=== PATIENT | male | born 1990 | race Caucasian/White ===

== ENCOUNTER 2018-05-03 14:30 | Inpatient (IN) | payer OTHER ==
[2018-05-03 16:40] VITALS: BMI 24.4
--- NOTE | 2018-05-03 19:41 | HP ---
COWS - Scale Resting Pulse: 0= ME 80 or Below Sweatin=Flushed/Facial Moisture Restless Observation: 3= Extraneous Movement Pupil Size: 2= Moderately Dilated (Pupils = 4 mm) Bone or Joint Aches: 0= None Runny Nose/ Eye Tearin= Nasal Congestion GI Upset > 30mins: 0= None Tremor Observation: 1= Tremor [place], Not Seen Yawning Observation: 0= None Anxiety or Irritability: 1=Feels Anxious/Irritable Goose Flesh Skin: 0=Smooth Skin COWS Score: 10 Admission ROS [facility] - HPI Chief Complaint: Here for withdrawal from heroin. Allergies/Adverse Reactions: Allergies Allergy/AdvReac Type Severity Reaction Status Date / Time No Known Allergies Allergy Verified 05/03/18 17:46 History of Present Illness: Started using heroin at age 23. Uses heroin IV. Nicotine use at age 17. States does not shared needles or works. Denies hx overdose, seizures or blackouts. Denies significant PMH/PSH Exam Limitations: No Limitations - Ebola screening Have you traveled outside of the country in the last 21 days: No Have you had contact with anyone from an Ebola affected area: No Have you been sick,other than usual withdrawal symptoms: No Do you have a fever: No - Review of Systems Constitutional: Unintentional Wgt. Loss (Using drugs instead of eating) EENT: reports: Blurred Vision (Wears glaases), Nose Congestion (r/t withdrawal) Respiratory: reports: No Symptoms reported Cardiac: reports: No Symptoms Reported GI: reports: No Symptoms Reported : reports: No Symptoms Reported Musculoskeletal: reports: No Symptoms Reported Integumentary: reports: No Symptoms Reported Neuro: reports: Headache (mild r/t withdrawal) Endocrine: reports: No Symptoms Reported Hematology: reports: No Symptoms Reported Psychiatric: reports: Judgement Intact, Orientated x3, Agitated, Anxious ( Denies thoughts of harming self or others) Patient History - Patient Medical History Hx Asthma: No Hx Chronic Obstructive Pulmonary Disease (COPD): No Hx Cardiac Disorders: No Hx Congestive Heart Failure: No Hx Hypertension: No Hx Seizures: No Hx Diabetes: No Hx Gastrointestinal Disorders: No Hx Liver Disease: No Hx Genitourinary Disorders: No Hx Sexually Transmitted Disorders: No Hx Renal Disease (ESRD): No Hx Thyroid Disease: No Hx Human Immunodeficiency Virus (HIV): No (negative 1 year ago) Hx Hepatitis C: No Hx Depression: No Hx Suicide Attempt: No Hx Schizophrenia: No - Patient Surgical History Past Surgical History: Yes Hx Appendectomy: Yes Anesthesia Reaction: No - PPD History Previous Implant?: Yes Documented Results: Negative w/o proof Implanted On Prior [facility] Admission?: No PPD to be Administered?: Yes - Smoking Cessation Smoking history: Current every day smoker Have you smoked in the past 12 months: Yes Aproximately how many cigarettes per day: 6 Hx Chewing Tobacco Use: No Initiated information on smoking cessation: Yes 'Breaking Loose' booklet given: 05/03/18 - Substance & Tx. History Hx Alcohol Use: No Hx Substance Use: Yes Substance Use Type: Heroin Hx Substance Use Treatment: Yes (detox 2016) - Substances Abused Heroin Route: Injection Frequency: Daily Amount used: 2 bags Age of first use: 23 Date of Last Use: 05/03/18 (9:30 am) Admission Physical Exam BHS - Vital Signs Vital Signs: Vital Signs - 24 hr 05/03/18 16:37 Temperature 97.1 F L Pulse Rate 64 Respiratory 18 Rate Blood Pressure 126/74 - Physical General Appearance: Yes: Mild Distress, Tremorous (Mild tremor felt in hand), Anxious HEENTM: Yes: EOMI, Hearing grossly Normal, Normocephalic, Normal Voice, [place] ( Pupils = 4 mm), Other (Dry mucous membranes) Respiratory: Yes: Chest Non-Tender, Lungs Clear, Normal Breath Sounds, No Respiratory Distress Neck: Yes: No masses,lesions,Nodules, Supple Breast: Yes: Breast Exam Deferred Cardiology: Yes: Regular Rhythm, Regular Rate, S1, S2 Abdominal: Yes: Normal Bowel Sounds, Non Tender, Flat, Soft Genitourinary: Yes: Within Normal Limits Back: Yes: Normal Inspection Musculoskeletal: Yes: full range of Motion, Gait Steady Extremities: Yes: Normal Capillary Refill, Normal Range of Motion, Non-Tender, Tremors (Mild tremors felt in hands) Neurological: Yes: cage maker machine II-XII NML intact, Fully Oriented, Alert, Motor Strength 5/5, Normal Mood/Affect, Normal Response Integumentary: Yes: Normal Color, Dry (Decreased skin turgor), Track Benedict ( Both antecubitals. No increased redness, erythema, warmth) Lymphatic: Yes: Within Normal Limits - Diagnostic (1) Opioid dependence with withdrawal Current Visit: Yes Status: Acute (2) Dehydration Current Visit: Yes Status: Acute (3) Nicotine dependence Current Visit: Yes Status: Chronic Qualifiers: Nicotine product type: cigarettes Substance use status: in withdrawal Qualified Code(s): F17.213 - Nicotine dependence, cigarettes, with withdrawal Cleared for Admission [facility] - Detox or Rehab [facility] Level of Care: Medically Supervised Detox Regimen/Protocol: Methadone [facility] Breath Alcohol Content Breath Alcohol Content: 0 Urine Drug Screen - Results Drug Screen Negative: No Urine Drug Screen Results: OPI-Opiates, FEN-Fentanyl
[2018-05-03] MEDS ORDERED: METHADONE HCL 10 MG TABLET (FOR DETOX USE ONLY) PO ONE ×2 (19:59→23:00)
[2018-05-03] MEDS ORDERED: IBUPROFEN 400 MG TABLET (FP) PO PRN (19:59)
[2018-05-03] MEDS ORDERED: guaiFENesin/D-METHORPHAN HB 10 ML UNIT-DOSE CUPS PO PRN (19:59)
[2018-05-03] MEDS ORDERED: MENTHOL/PHENOL 1 EACH UD MM PRN (19:59)
[2018-05-03] MEDS ORDERED: MAGNESIUM CITRATE 300 ML BOTTLE PO PRN (19:59)
[2018-05-03] MEDS ORDERED: NICOTINE POLACRILEX 2 MG GUM BC PRN (19:59)
[2018-05-03] MEDS ORDERED: P-EPHED 60MG/TRIPROLIDI 2.5MG TABLET PO PRN (19:59)
[2018-05-03] MEDS ORDERED: ACETAMINOPHEN 325 MG TABLET (FP) PO PRN (19:59)
[2018-05-03] MEDS ORDERED: MAG HYDROX/AL HYDROX/SIMETH 30 ML UNIT-DOSE CUP PO PRN (19:59)
[2018-05-03] MEDS ORDERED: MAGNESIUM HYDROX 2400MG/30ML ORAL SUSPENSION 30 ML CUP PO PRN (19:59)
[2018-05-03] MEDS ORDERED: LOPERAMIDE HCL 2 MG CAPSULE PO PRN (19:59)
[2018-05-03] MEDS ORDERED: MELATONIN 5 MG TABLETS PO PRN (22:00)
[2018-05-03] MEDS: THIAMINE HCL 100 MG TABLET (FP) PO SCH (22:04)
[2018-05-03 23:22] LABS: URINE APPEARANCE TURBID; URINE BILIRUBIN NEGATIVE (<2.0 mg/dL); URINE COLOR AMBER; URINE GLUCOSE (UA) NEGATIVE (NEGATIVE); URINE KETONE NEGATIVE (NEGATIVE); URINE LEUK ESTERASE NEGATIVE (NEGATIVE); URINE NITRITE NEGATIVE (NEGATIVE); URINE PROTEIN NEGATIVE (NEGATIVE); URINE UROBILINOGEN NEGATIVE mg/dL (0.2-1.0)
[2018-05-04] MEDS ORDERED: METHADONE HCL 10 MG TABLET (FOR DETOX USE ONLY) PO ONE (10:00)
[2018-05-04] MEDS: NICOTINE 7 MG/24 HOURS TOPICAL PATCH TD SCH (10:26)
[2018-05-04] MEDS: PRENATAL VITAMINS W/ FOLIC ACID TABLET (FP) PO SCH (10:27)
[2018-05-04 10:35] LABS: HEMATOCRIT 40.8 % (35.4-49); HEMOGLOBIN 13.5 GM/dL (11.7-16.9); MCH 30.2 pg (25.7-33.7); MEAN CELL VOLUME 91.6 fl (80-96); MEAN PLT VOLUME 7.5 fl (7.5-11.1); PLATELET COUNT 291 K/MM3 (134-434); RBC 4.46 M/mm3 (4.00-5.60); RDW 14.5 % (11.9-15.9); WHITE BLOOD COUNT 5.2 K/mm3 (4.0-10.0)
[2018-05-04 10:55] LABS: ALBUMIN 3.5 g/dl (3.4-5.0); ALK PHOS 62 U/L (45-117); ANION GAP 8 MMOL/L (8-16); BILIRUBIN,TOTAL 0.3 mg/dL (0.2-1); BLOOD UREA NITROGEN 14 mg/dL (7-18); CALCIUM 9.4 mg/dL (8.5-10.1); CHLORIDE 104 mmol/L (98-107); CO2 28 mmol/L (21-32); CREATININE 0.9 mg/dL (0.55-1.3); GLUCOSE,RANDOM 81 mg/dL (74-106); POTASSIUM 4.6 mmol/L (3.5-5.1); SGOT/AST 8 U/L (15-37); SGPT/ALT 19 U/L (13-61); SODIUM 140 mmol/L (136-145); TOT PROT 6.6 g/dl (6.4-8.2)
--- NOTE | 2018-05-04 11:07 | EKG ---
Test Reason : Blood Pressure : / mmHG Vent. Rate : 060 BPM Atrial Rate : 060 BPM P-R Int : 132 ms QRS Dur : 086 ms QT Int : 414 ms P-R-T Axes : 023 070 040 degrees QTc Int : 414 ms NORMAL SINUS RHYTHM NORMAL ECG NO PREVIOUS ECGS AVAILABLE Confirmed by Thomas Pugh MD ([id number]) on 05/04/2018 11:06:28 AM Referred By: Confirmed By:Thomas Pugh MD
--- NOTE | 2018-05-04 11:15 | CONSULT ---
[facility] Psychiatric Consult - Data Date of interview: 05/04/18 Admission source: [facility] Identifying data: Patient is a 27 year old male, father of two, domiciled, and unemployed (works "off the books". This is patient's first admission to detox at [facility]. Patient admitted to for opiate dependence. Substance Abuse History: - Smoking Cessation. Smoking history: Current every day smoker. Have you smoked in the past 12 months: Yes. Aproximately how many cigarettes per day: 6. Hx Chewing Tobacco Use: No. Initiated information on smoking cessation: Yes. 'Breaking Loose' booklet given: 05/03/18. - Substance & Tx. History. Hx Alcohol Use: No. Hx Substance Use: Yes. Substance Use Type : Heroin. Hx Substance Use Treatment: Yes (detox 2017). - Substances Abused. Heroin. Route: Injection. Frequency: Daily. Amount used: 2 bags. Age of first use: 23. Date of Last Use: 05/03/18 (9:30 am) Medical History: denies. Psychiatric History: Patient denies h/o psychiatric hospitalization, outpatient care, and suicide attempt. Physical/Sexual Abuse/Trauma History: denies. Mental Status Exam - Mental Status Exam Alert and Oriented to: Time, Place, Person Cognitive Function: Good Patient Appearance: Well Groomed Mood: Euthymic Affect: Mood Congruent Patient Behavior: Appropriate, Cooperative Speech Pattern: Appropriate (Beninese speaking) Voice Loudness: Normal Thought Process: Intact, Goal Oriented Thought Disorder: Not Present Hallucinations: Denies Suicidal Ideation: Denies Homicidal Ideation: Denies Insight/Judgement: Poor Sleep: Fair Appetite: Fair Muscle strength/Tone: Normal Gait/Station: Normal Psychiatric Findings - Problem List (Fluker 1, 2,3) (1) Opioid dependence with withdrawal Current Visit: Yes Status: Acute (2) Nicotine dependence Current Visit: Yes Status: Chronic Qualifiers: Nicotine product type: cigarettes Substance use status: in withdrawal Qualified Code(s): F17.213 - Nicotine dependence, cigarettes, with withdrawal - Initial Treatment Plan Initial Treatment Plan: Psychoeducation provided. Detoxification in progress. Observation.
--- NOTE | 2018-05-04 11:30 | PN ---
BHS COWS - Scale Resting Pulse: 0= SD 80 or Below Sweatin=Flushed/Facial Moisture Restless Observation: 1= Difficult to Sit Still Pupil Size: 0= Normal to Room Light Bone or Joint Aches: 1= Mild Discomfort Runny Nose/ Eye Tearin= Runny Nose/Eyes GI Upset > 30mins: 0= None Tremor Observation of Outstretched Hands: 1= Tremor [place], Not Seen Yawning Observation: 2= >3x During Session Anxiety or Irritability: 2=Irritable/Anxious Goose Flesh Skin: 0=Smooth Skin COWS Score: 11 BHS Progress Note (SOAP) Subjective: irritable chills agitation anxiety sweats interrupted sleep Objective: 05/04/18 11:26 Vital Signs Temperature 97.8 F 05/04/18 09:18 Pulse Rate 67 05/04/18 09:18 Respiratory Rate 18 05/04/18 09:18 Blood Pressure 114/71 05/04/18 09:18 O2 Sat by Pulse Oximetry (%) Laboratory Tests 05/03/18 05/03/18 05/04/18 07:30 19:46 07:30 WBC 5.2 RBC 4.46 Hgb 13.5 Hct 40.8 MCV 91.6 MCH 30.2 MCHC 33.0 RDW 14.5 Plt Count 291 MPV 7.5 Sodium Potassium Chloride Carbon Dioxide Anion Gap BUN Creatinine Creat Clearance w eGFR Random Glucose Calcium Total Bilirubin AST ALT Alkaline Phosphatase Total Protein Albumin Urine Color Taya Urine Appearance Turbid Urine pH 6.0 Ur Specific [place] 1.026 Urine Protein Negative Urine Glucose (UA) Negative Urine Ketones Negative Urine Blood Negative Urine Nitrite Negative Urine Bilirubin Negative Urine Urobilinogen Negative Ur Leukocyte Esterase Negative RPR Titer HIV 1&2 Antibody Screen Negative HIV P24 Antigen Negative 05/04/18 05/04/18 07:30 07:30 WBC RBC Hgb Hct MCV MCH MCHC RDW Plt Count MPV Sodium 140 Potassium 4.6 Chloride 104 Carbon Dioxide 28 Anion Gap 8 BUN 14 Creatinine 0.9 Creat Clearance w eGFR > 60 Random Glucose 81 Calcium 9.4 Total Bilirubin 0.3 AST 8 L ALT 19 Alkaline Phosphatase 62 Total Protein 6.6 Albumin 3.5 Urine Color Urine Appearance Urine pH Ur Specific [place] Urine Protein Urine Glucose (UA) Urine Ketones Urine Blood Urine Nitrite Urine Bilirubin Urine Urobilinogen Ur Leukocyte Esterase RPR Titer Nonreactive HIV 1&2 Antibody Screen HIV P24 Antigen aaox3 ambulating no acute distress Assessment: 05/04/18 11:26 withdrawal sx Plan: continue detox increase fluids
[2018-05-04] MEDS: diazePAM 5 MG TABLET PO PRN ×3 (13:15→22:36)
[2018-05-04] MEDS: THIAMINE HCL 100 MG TABLET (FP) PO SCH (22:04)
--- NOTE | 2018-05-05 09:23 | PN ---
BHS COWS - Scale Resting Pulse: 0= HI 80 or Below Sweatin= Chills/Flushing Restless Observation: 1= Difficult to Sit Still Pupil Size: 1= Pupils >than Normal Bone or Joint Aches: 1= Mild Discomfort Runny Nose/ Eye Tearin= Nasal Congestion GI Upset > 30mins: 1= Stomach Cramp Tremor Observation of Outstretched Hands: 1= Tremor [place], Not Seen Yawning Observation: 1= 1-2x During Session Anxiety or Irritability: 1=Feels Anxious/Irritable Goose Flesh Skin: 0=Smooth Skin COWS Score: 9 BHS Progress Note (SOAP) Subjective: irritable tremor sweat body ache teary eyes Objective: 05/05/18 09:22 Vital Signs Temperature 97.0 F L 05/05/18 09:05 Pulse Rate 60 05/05/18 09:05 Respiratory Rate 16 05/05/18 09:05 Blood Pressure 106/56 L 05/05/18 09:05 O2 Sat by Pulse Oximetry (%) Laboratory Last Values WBC 5.2 K/mm3 (4.0-10.0) 05/04/18 07:30 RBC 4.46 M/mm3 (4.00-5.60) 05/04/18 07:30 Hgb 13.5 GM/dL (11.7-16.9) 05/04/18 07:30 Hct 40.8 % (35.4-49) 05/04/18 07:30 MCV 91.6 fl (80-96) 05/04/18 07:30 MCH 30.2 pg (25.7-33.7) 05/04/18 07:30 MCHC 33.0 g/dl (32.0-35.9) 05/04/18 07:30 RDW 14.5 % (11.9-15.9) 05/04/18 07:30 Plt Count 291 K/MM3 (134-434) 05/04/18 07:30 MPV 7.5 fl (7.5-11.1) 05/04/18 07:30 Sodium 140 mmol/L (136-145) 05/04/18 07:30 Potassium 4.6 mmol/L (3.5-5.1) 05/04/18 07:30 Chloride 104 mmol/L (98-107) 05/04/18 07:30 Carbon Dioxide 28 mmol/L (21-32) 05/04/18 07:30 Anion Gap 8 MMOL/L (8-16) 05/04/18 07:30 BUN 14 mg/dL (7-18) 05/04/18 07:30 Creatinine 0.9 mg/dL (0.55-1.3) 05/04/18 07:30 Creat Clearance w eGFR > 60 (>60) 05/04/18 07:30 Random Glucose 81 mg/dL (74-106) 05/04/18 07:30 Calcium 9.4 mg/dL (8.5-10.1) 05/04/18 07:30 Total Bilirubin 0.3 mg/dL (0.2-1) 05/04/18 07:30 AST 8 U/L (15-37) L 05/04/18 07:30 ALT 19 U/L (13-61) 05/04/18 07:30 Alkaline Phosphatase 62 U/L (45-117) 05/04/18 07:30 Total Protein 6.6 g/dl (6.4-8.2) 05/04/18 07:30 Albumin 3.5 g/dl (3.4-5.0) 05/04/18 07:30 Urine Color Taya 05/03/18 19:46 Urine Appearance Turbid 05/03/18 19:46 Urine pH 6.0 (5.0-8.0) 05/03/18 19:46 Ur Specific [place] 1.026 (1.001-1.035) 05/03/18 19:46 Urine Protein Negative (NEGATIVE) 05/03/18 19:46 Urine Glucose (UA) Negative (NEGATIVE) 05/03/18 19:46 Urine Ketones Negative (NEGATIVE) 05/03/18 19:46 Urine Blood Negative (NEGATIVE) 05/03/18 19:46 Urine Nitrite Negative (NEGATIVE) 05/03/18 19:46 Urine Bilirubin Negative (<2.0 mg/dL) 05/03/18 19:46 Urine Urobilinogen Negative mg/dL (0.2-1.0) 05/03/18 19:46 Ur Leukocyte Esterase Negative (NEGATIVE) 05/03/18 19:46 RPR Titer Nonreactive (NONREACTIVE) 05/04/18 07:30 HIV 1&2 Antibody Screen Negative 05/03/18 07:30 HIV P24 Antigen Negative 05/03/18 07:30 lab noted Assessment: 05/05/18 09:23 withdrawal sx Plan: continue detox
[2018-05-05] MEDS ORDERED: METHADONE HCL 5 MG TABLET (FOR DETOX USE ONLY) PO ONE (10:00)
[2018-05-05] MEDS: NICOTINE 7 MG/24 HOURS TOPICAL PATCH TD SCH (10:13)
[2018-05-05] MEDS: PRENATAL VITAMINS W/ FOLIC ACID TABLET (FP) PO SCH (10:14)
[2018-05-05] MEDS: diazePAM 5 MG TABLET PO PRN ×2 (10:18→22:05)
[2018-05-05] MEDS: THIAMINE HCL 100 MG TABLET (FP) PO SCH (22:05)
[2018-05-06 09:19] VITALS: BP 104/61; PULSE 67; TEMP 97.2
[2018-05-06] MEDS ORDERED: METHADONE HCL 5 MG TABLET (FOR DETOX USE ONLY) PO ONE (10:00)
--- NOTE | 2018-05-06 11:03 | DS ---
[facility] Detox Discharge Summary Admission Date: 05/03/18 Discharge Date: 05/06/18 - History Present History: Opioid Dependence Additional Comments: 27 years old male admitted on 05/03/18 for opiate withdrawal sx insists to leave the detox unit stated that appointment at wellness center next week that withdrawal sx is manageable and able to do a few things at home wants to return home managing a few things patient is alert oriented x 3 no acute distress, steady gait denies suicidal denies homocidal no self destructive behavior - Physical Exam Results Vital Signs: Vital Signs Temperature 97.2 F L 05/06/18 09:19 Pulse Rate 67 05/06/18 09:19 Respiratory Rate 18 05/06/18 09:19 Blood Pressure 104/61 05/06/18 09:19 O2 Sat by Pulse Oximetry (%) Pertinent Admission Physical Exam Findings: opioid withdrawal sx Vital Signs Temperature 97.2 F L 05/06/18 09:19 Pulse Rate 67 05/06/18 09:19 Respiratory Rate 18 05/06/18 09:19 Blood Pressure 104/61 05/06/18 09:19 O2 Sat by Pulse Oximetry (%) Laboratory Last Values WBC 5.2 K/mm3 (4.0-10.0) 05/04/18 07:30 RBC 4.46 M/mm3 (4.00-5.60) 05/04/18 07:30 Hgb 13.5 GM/dL (11.7-16.9) 05/04/18 07:30 Hct 40.8 % (35.4-49) 05/04/18 07:30 MCV 91.6 fl (80-96) 05/04/18 07:30 MCH 30.2 pg (25.7-33.7) 05/04/18 07:30 MCHC 33.0 g/dl (32.0-35.9) 05/04/18 07:30 RDW 14.5 % (11.9-15.9) 05/04/18 07:30 Plt Count 291 K/MM3 (134-434) 05/04/18 07:30 MPV 7.5 fl (7.5-11.1) 05/04/18 07:30 Sodium 140 mmol/L (136-145) 05/04/18 07:30 Potassium 4.6 mmol/L (3.5-5.1) 05/04/18 07:30 Chloride 104 mmol/L (98-107) 05/04/18 07:30 Carbon Dioxide 28 mmol/L (21-32) 05/04/18 07:30 Anion Gap 8 MMOL/L (8-16) 05/04/18 07:30 BUN 14 mg/dL (7-18) 05/04/18 07:30 Creatinine 0.9 mg/dL (0.55-1.3) 05/04/18 07:30 Creat Clearance w eGFR > 60 (>60) 05/04/18 07:30 Random Glucose 81 mg/dL (74-106) 05/04/18 07:30 Calcium 9.4 mg/dL (8.5-10.1) 05/04/18 07:30 Total Bilirubin 0.3 mg/dL (0.2-1) 05/04/18 07:30 AST 8 U/L (15-37) L 05/04/18 07:30 ALT 19 U/L (13-61) 05/04/18 07:30 Alkaline Phosphatase 62 U/L (45-117) 05/04/18 07:30 Total Protein 6.6 g/dl (6.4-8.2) 05/04/18 07:30 Albumin 3.5 g/dl (3.4-5.0) 05/04/18 07:30 Urine Color Taya 05/03/18 19:46 Urine Appearance Turbid 05/03/18 19:46 Urine pH 6.0 (5.0-8.0) 05/03/18 19:46 Ur Specific [place] 1.026 (1.001-1.035) 05/03/18 19:46 Urine Protein Negative (NEGATIVE) 05/03/18 19:46 Urine Glucose (UA) Negative (NEGATIVE) 05/03/18 19:46 Urine Ketones Negative (NEGATIVE) 05/03/18 19:46 Urine Blood Negative (NEGATIVE) 05/03/18 19:46 Urine Nitrite Negative (NEGATIVE) 05/03/18 19:46 Urine Bilirubin Negative (<2.0 mg/dL) 05/03/18 19:46 Urine Urobilinogen Negative mg/dL (0.2-1.0) 05/03/18 19:46 Ur Leukocyte Esterase Negative (NEGATIVE) 05/03/18 19:46 RPR Titer Nonreactive (NONREACTIVE) 05/04/18 07:30 HIV 1&2 Antibody Screen Negative 05/03/18 07:30 HIV P24 Antigen Negative 05/03/18 07:30 lab noted - Treatment Hospital Course: Detox Protocol Followed, Responded well Patient has Accepted a Rehab Referral to: wellness cnter - Medication Discharge Medications: Ambulatory Orders NK [No Known Home Medication] 05/03/18 - Diagnosis (1) Opioid dependence with withdrawal Current Visit: Yes Status: Acute (2) Nicotine dependence Current Visit: Yes Status: Chronic Qualifiers: Nicotine product type: cigarettes Substance use status: in withdrawal Qualified Code(s): F17.213 - Nicotine dependence, cigarettes, with withdrawal - AMA Did Patient Leave Against Medical Advice: Yes
[2018-05-07] MEDS ORDERED: METHADONE HCL 10 MG TABLET (FOR DETOX USE ONLY) PO ONE (10:00)
[2018-05-08] MEDS ORDERED: METHADONE HCL 5 MG TABLET (FOR DETOX USE ONLY) PO ONE (06:00)
== END 2018-05-06 11:00 | disposition left against medical advice (07) | DRG 770 ==
LOC: YASAS 14:30 → Y6N 18:31
PROC: HZ2ZZZZ Detoxification Services for Substance Abuse Treatment (ICD-10-PCS; principal; 2018-05-03)
DX: F11.23 Opioid dependence with withdrawal (principal); F17.213 Nicotine dependence, cigarettes, with withdrawal; E86.0 Dehydration
CPT/HCPCS: 36415; 80053; 81003; 85027; 86593; 87389; 93005; 93010